=== PATIENT | male | born 1955 | race Caucasian/White ===

== ENCOUNTER 2023-11-11 09:46 | Outpatient (NON) | payer OTHER, SELFPAY ==
[2023-11-11 10:30] LABS: Appearance Urine Clear (Clear); Bilirubin Urine Negative (Negative); Blood Urine 1+ (Negative); Color Urine Light Yellow (Yellow); Glucose Urine UA Negative (Negative); Hemoglobin 13.2 g/dL (12.4-15.3); Ketones Urine Negative (Negative); Leukocyte Esterase Ur Negative LEU/UL (Negative); Mean Corpuscular HGB Conc 33.8 g/dL (32-36); Mean Corpuscular Hemoglobin 31.6 pg (27.0-31.0); Mean Corpuscular Volume 93.3 fL (78.0-102.0); Nitrate Urine Negative (Negative); Platelet Count Result 420 K/mm3 (150-420); Protein Urine Negative (Negative); Red Blood Count 4.18 M/mm3 (4.70-6.10); Red Cell Distribution Width 15.1 % (11.6-14.4); Specific Grav Ur 1.015 (1.010-1.020); Urobilinogen Urine 0.2 mg/dL (0.2-1.0); White Blood Count 11.2 K/mm3 (4.8-10.8); pH Urine 6.5 (5.0-8.0)
[2023-11-11 10:42] LABS: Alanine Aminotransferase 37 U/L (16-63); Albumin Level 3.3 g/dL (3.4-5.0); Alkaline Phosphatase 110 U/L (46-116); Anion Gap 8 mmol/L (4-12); Aspartate Amino Transferase 21 U/L (15-37); Bilirubin,Total 0.7 mg/dL (0.00-1.00); Blood Urea Nitrogen 21 mg/dL (7-18); Calcium 9.8 mg/dL (8.5-10.1); Carbon Dioxide 26 mmol/L (21-32); Chloride 99 mmol/L (98-108); Estimated Glomerular Filt Rate > 60; Glucose 140 mg/dL (70-99); Magnesium 1.4 mg/dL (1.8-2.4); Osmolality Calculated 281 mOsm/kg (285-295); Potassium 4.7 mmol/L (3.5-5.1); Sodium 133 mmol/L (136-145); Total Protein 6.9 g/dL (6.4-8.2)
[2023-11-11 10:43] LABS: Add Urine Microscopic? YES; Bacteria Urine None seen /hpf; RBC Urine 0-2 /hpf (0-2); WBC Urine None seen /hpf (0-3)
[2023-11-11 10:45] LABS: Total Protein Urine Random 25.7 mg/dL (0.0-11.9)
[2023-11-11 11:50] LABS: Total Cells Counted 100
[2023-11-11 11:51] LABS: Band Neutrophils Percent 1 % (0-6); Eosinophils Absolute Manual 0.33 K/mm3 (0.02-0.50); Eosinophils Percent Manual 3 % (1-6); Lymphocytes Percent Manual 9 % (18-44); Monocytes Absolute Manual 1.34 K/mm3 (0.1-0.90); Monocytes Percent Manual 12 % (3-9); Neutrophils Absolute Manual 8.51 K/mm3 (1.3-6.7); Neutrophils Percent Manual 75 % (46-73)
[2023-11-11 11:52] LABS: Platelet Estimate Increased (Adequate); Schistocytes None Seen
[2023-11-13 15:24] LABS: Tacrolimus Prograf 11.5 mcg/L
== END 2023-11-11 09:47 | disposition home or self-care (01) ==
LOC: CHSLAB 09:54
DX: Z94.0 Kidney transplant status (principal)
CPT/HCPCS: 36415; 80053; 80197; 81001; 81050; 83735; 84100; 84156; 85025

== ENCOUNTER 2023-11-14 10:48 | Outpatient (NON) | payer OTHER, SELFPAY ==
[2023-11-14 11:26] LABS: Appearance Urine Clear (Clear); Basophils Absolute Auto 0.12 K/mm3 (0.00-0.10); Bilirubin Urine Negative (Negative); Blood Urine 1+ (Negative); Color Urine Light Yellow (Yellow); Eosinophils Absolute Auto 0.93 K/mm3 (0.02-0.50); Eosinophils Percent Auto 7.5 % (1.0-6.0); Glucose Urine UA Negative (Negative); Hematocrit 36.8 % (37.0-46.0); Hemoglobin 12.4 g/dL (12.4-15.3); Immature Granulocyte Absolute 0.12 K/mm3 (0.00-0.00); Ketones Urine Negative (Negative); Leukocyte Esterase Ur Negative LEU/UL (Negative); Lymphocytes Absolute Auto 1.05 K/mm3 (1.10-4.50); Lymphocytes Percent Auto 8.4 % (18.0-42.0); Mean Corpuscular HGB Conc 33.7 g/dL (32-36); Mean Corpuscular Hemoglobin 32.4 pg (27.0-31.0); Mean Corpuscular Volume 96.1 fL (78.0-102.0); Mean Platelet Volume 8.8 fl (8.7-11.0); Monocytes Absolute Auto 0.58 K/mm3 (0.10-0.90); Monocytes Percent Auto 4.7 % (2.0-11.0); Neutrophils Absolute Auto 9.66 K/mm3 (1.70-7.20); Neutrophils Percent Auto 77.4 % (50.0-70.0); Nitrate Urine Negative (Negative); Platelet Count Result 427 K/mm3 (150-420); Protein Urine Negative (Negative); Red Blood Count 3.83 M/mm3 (4.70-6.10); Red Cell Distribution Width 15.3 % (11.6-14.4); Urobilinogen Urine 0.2 mg/dL (0.2-1.0); White Blood Count 12.5 K/mm3 (4.8-10.8)
[2023-11-14 11:29] LABS: Total Protein Urine Random 19.5 mg/dL (0.0-11.9)
[2023-11-14 11:35] LABS: Add Urine Microscopic? YES; Bacteria Urine Rare /hpf; WBC Urine None seen /hpf (0-3)
[2023-11-14 11:44] LABS: Alanine Aminotransferase 26 U/L (16-63); Albumin Level 3.3 g/dL (3.4-5.0); Alkaline Phosphatase 118 U/L (46-116); Anion Gap 3 mmol/L (4-12); Aspartate Amino Transferase 15 U/L (15-37); Bilirubin,Total 0.5 mg/dL (0.00-1.00); Blood Urea Nitrogen 22 mg/dL (7-18); Carbon Dioxide 25 mmol/L (21-32); Chloride 96 mmol/L (98-108); Estimated Glomerular Filt Rate > 60; Glucose 107 mg/dL (70-99); Magnesium 1.3 mg/dL (1.8-2.4); Osmolality Calculated 261 mOsm/kg (285-295); Phosphorus 1.8 mg/dL (2.6-4.7); Sodium 124 mmol/L (136-145); Total Protein 6.6 g/dL (6.4-8.2)
[2023-11-15 08:48] LABS: Creatinine Urine 41.33 mg/dL (40-278); Ur Ttl Prot Creatinine Ratio 0.47 mg/mg (0-0.20)
[2023-11-18 14:54] LABS: Tacrolimus Prograf 11.3 mcg/L
== END 2023-11-14 10:49 | disposition home or self-care (01) ==
DX: R80.9 Proteinuria, unspecified (principal)
CPT/HCPCS: 36415; 80053; 80197; 81001; 81050; 82570; 83735; 84100; 84156; 85025

== ENCOUNTER 2023-11-18 09:45 | Outpatient (NON) | payer OTHER, SELFPAY ==
[2023-11-18 10:35] LABS: Basophils Absolute Auto 0.12 K/mm3 (0.00-0.10); Basophils Percent Auto 1.2 % (0.0-1.0); Eosinophils Absolute Auto 0.53 K/mm3 (0.02-0.50); Eosinophils Percent Auto 5.4 % (1.0-6.0); Hematocrit 35.9 % (37.0-46.0); Immature Granulocyte Absolute 0.06 K/mm3 (0.00-0.00); Immature Granulocyte Percent A 0.6 % (0.0-0.0); Lymphocytes Absolute Auto 1.03 K/mm3 (1.10-4.50); Lymphocytes Percent Auto 10.5 % (18.0-42.0); Mean Corpuscular HGB Conc 33.4 g/dL (32-36); Mean Corpuscular Hemoglobin 32.1 pg (27.0-31.0); Mean Platelet Volume 8.5 fl (8.7-11.0); Monocytes Absolute Auto 0.42 K/mm3 (0.10-0.90); Monocytes Percent Auto 4.3 % (2.0-11.0); Neutrophils Absolute Auto 7.66 K/mm3 (1.70-7.20); Platelet Count Result 371 K/mm3 (150-420); Red Blood Count 3.74 M/mm3 (4.70-6.10); Red Cell Distribution Width 15.2 % (11.6-14.4); White Blood Count 9.8 K/mm3 (4.8-10.8)
[2023-11-18 11:07] LABS: Appearance Urine Clear (Clear); Bilirubin Urine Negative (Negative); Blood Urine Negative (Negative); Color Urine Light Yellow (Yellow); Glucose Urine UA Negative (Negative); Ketones Urine Negative (Negative); Leukocyte Esterase Ur Negative (Negative); Nitrate Urine Negative (Negative); Protein Urine Negative (Negative); Urobilinogen Urine 0.2 mg/dL (0.2-1.0)
[2023-11-18 11:37] LABS: Add Urine Microscopic? NO
[2023-11-18 15:57] LABS: Alanine Aminotransferase 23 U/L (6-50); Albumin Level 4.1 g/dL (3.5-5.1); Alkaline Phosphatase 117 U/L (38-126); Anion Gap 8 mmol/L (4-12); Aspartate Amino Transferase 21 U/L (17-59); Bilirubin,Total 0.6 mg/dL (0.2-1.3); Blood Urea Nitrogen 21 mg/dL (9-20); Calcium 10.2 mg/dL (8.4-10.2); Carbon Dioxide 19 mmol/L (22-30); Chloride 106 mmol/L (98-107); Estimated Glomerular Filt Rate > 60; Glucose 119 mg/dL (65-110); Magnesium 1.5 mg/dL (1.6-2.3); Osmolality Calculated 280 mOsm/kg (285-295); Phosphorus 2.2 mg/dL (2.5-4.5); Potassium 4.5 mmol/L (3.4-5.0); Sodium 133 mmol/L (137-145)
[2023-11-22 13:11] LABS: Ur Ttl Prot Creatinine Ratio 0.45 mg/mg (0-0.20)
== END 2023-11-18 09:46 | disposition home or self-care (01) ==
LOC: CHSLAB 09:54
DX: Z94.0 Kidney transplant status (principal)
CPT/HCPCS: 36415; 80053; 80197; 81003; 82570; 83735; 84100; 84156; 85025; 87086; 87088

== ENCOUNTER 2023-11-21 09:46 | Outpatient (NON) | payer OTHER, SELFPAY ==
[2023-11-21 10:06] LABS: Appearance Urine Clear (Clear); Basophils Absolute Auto 0.12 K/mm3 (0.00-0.10); Basophils Percent Auto 1.6 % (0.0-1.0); Bilirubin Urine Negative (Negative); Blood Urine Trace-intact (Negative); Color Urine Light Yellow (Yellow); Eosinophils Percent Auto 5.2 % (1.0-6.0); Glucose Urine UA Negative (Negative); Hemoglobin 12.1 g/dL (12.4-15.3); Immature Granulocyte Absolute 0.04 K/mm3 (0.00-0.00); Immature Granulocyte Percent A 0.5 % (0.0-0.0); Ketones Urine Negative (Negative); Leukocyte Esterase Ur Negative LEU/UL (Negative); Lymphocytes Absolute Auto 1.14 K/mm3 (1.10-4.50); Lymphocytes Percent Auto 14.7 % (18.0-42.0); Mean Corpuscular HGB Conc 33.6 g/dL (32-36); Mean Corpuscular Volume 95.2 fL (78.0-102.0); Mean Platelet Volume 8.6 fl (8.7-11.0); Monocytes Absolute Auto 0.33 K/mm3 (0.10-0.90); Monocytes Percent Auto 4.3 % (2.0-11.0); Neutrophils Absolute Auto 5.71 K/mm3 (1.70-7.20); Neutrophils Percent Auto 73.7 % (50.0-70.0); Nitrate Urine Negative (Negative); Platelet Count Result 347 K/mm3 (150-420); Protein Urine Negative (Negative); Red Blood Count 3.78 M/mm3 (4.70-6.10); Red Cell Distribution Width 15.2 % (11.6-14.4); Urobilinogen Urine 0.2 mg/dL (0.2-1.0); White Blood Count 7.7 K/mm3 (4.8-10.8); pH Urine 6.5 (5.0-8.0)
[2023-11-21 10:13] LABS: Add Urine Microscopic? YES; Bacteria Urine None seen /hpf; RBC Urine 0-2 /hpf (0-2); WBC Urine None seen /hpf (0-3)
[2023-11-21 10:14] LABS: Creatinine Urine 45.98 mg/dL (40-278); Total Protein Urine Random 19.4 mg/dL (0.0-11.9); Ur Ttl Prot Creatinine Ratio 0.42 mg/mg (0-0.20)
[2023-11-21 10:21] LABS: Alanine Aminotransferase 22 U/L (16-63); Albumin Level 3.2 g/dL (3.4-5.0); Alkaline Phosphatase 144 U/L (46-116); Anion Gap 8 mmol/L (4-12); Aspartate Amino Transferase 13 U/L (15-37); Bilirubin,Total 0.5 mg/dL (0.00-1.00); Blood Urea Nitrogen 25 mg/dL (7-18); Calcium 9.9 mg/dL (8.5-10.1); Carbon Dioxide 26 mmol/L (21-32); Chloride 103 mmol/L (98-108); Estimated Glomerular Filt Rate > 60; Glucose 130 mg/dL (70-99); Magnesium 1.3 mg/dL (1.8-2.4); Osmolality Calculated 290 mOsm/kg (285-295); Phosphorus 1.7 mg/dL (2.6-4.7); Potassium 4.9 mmol/L (3.5-5.1); Sodium 137 mmol/L (136-145); Total Protein 6.8 g/dL (6.4-8.2)
== END 2023-11-21 09:47 | disposition home or self-care (01) ==
DX: Z94.0 Kidney transplant status (principal)
CPT/HCPCS: 36415; 80053; 80197; 81001; 82570; 83735; 84100; 84156; 85025

== ENCOUNTER 2023-11-26 09:37 | Outpatient (NON) | payer OTHER, SELFPAY ==
[2023-11-26 09:52] LABS: Basophils Percent Auto 1.4 % (0.0-1.0); Eosinophils Absolute Auto 0.31 K/mm3 (0.02-0.50); Eosinophils Percent Auto 4.4 % (1.0-6.0); Hematocrit 35.6 % (37.0-46.0); Hemoglobin 12.1 g/dL (12.4-15.3); Immature Granulocyte Absolute 0.03 K/mm3 (0.00-0.00); Immature Granulocyte Percent A 0.4 % (0.0-0.0); Lymphocytes Absolute Auto 1.14 K/mm3 (1.10-4.50); Mean Corpuscular Hemoglobin 32.4 pg (27.0-31.0); Mean Corpuscular Volume 95.2 fL (78.0-102.0); Mean Platelet Volume 8.7 fl (8.7-11.0); Monocytes Absolute Auto 0.33 K/mm3 (0.10-0.90); Monocytes Percent Auto 4.6 % (2.0-11.0); Neutrophils Percent Auto 73.2 % (50.0-70.0); Platelet Count Result 309 K/mm3 (150-420); Red Blood Count 3.74 M/mm3 (4.70-6.10); Red Cell Distribution Width 15.1 % (11.6-14.4); White Blood Count 7.1 K/mm3 (4.8-10.8)
[2023-11-26 09:53] LABS: Appearance Urine Clear (Clear); Bilirubin Urine Negative (Negative); Blood Urine Negative (Negative); Color Urine Light Yellow (Yellow); Glucose Urine UA Negative (Negative); Ketones Urine Negative (Negative); Leukocyte Esterase Ur Negative LEU/UL (Negative); Nitrate Urine Negative (Negative); Protein Urine Negative (Negative); Specific Grav Ur 1.015 (1.010-1.020); Urobilinogen Urine 0.2 mg/dL (0.2-1.0); pH Urine 6.5 (5.0-8.0)
[2023-11-26 09:54] LABS: Add Urine Microscopic? NO
[2023-11-26 09:56] LABS: Creatinine Urine 50.08 mg/dL (40-278); Total Protein Urine Random 17.9 mg/dL (0.0-11.9); Ur Ttl Prot Creatinine Ratio 0.36 mg/mg (0-0.20)
[2023-11-26 10:07] LABS: Alanine Aminotransferase 17 U/L (16-63); Albumin Level 3.3 g/dL (3.4-5.0); Alkaline Phosphatase 157 U/L (46-116); Anion Gap 8 mmol/L (4-12); Aspartate Amino Transferase 12 U/L (15-37); Bilirubin,Total 0.3 mg/dL (0.00-1.00); Blood Urea Nitrogen 19 mg/dL (7-18); Calcium 9.5 mg/dL (8.5-10.1); Carbon Dioxide 26 mmol/L (21-32); Chloride 103 mmol/L (98-108); Estimated Glomerular Filt Rate > 60; Glucose 124 mg/dL (70-99); Magnesium 1.5 mg/dL (1.8-2.4); Osmolality Calculated 287 mOsm/kg (285-295); Phosphorus 1.6 mg/dL (2.6-4.7); Potassium 4.8 mmol/L (3.5-5.1); Sodium 137 mmol/L (136-145); Total Protein 6.7 g/dL (6.4-8.2)
[2023-11-28 00:03] LABS: Tacrolimus Prograf 11.6 mcg/L
== END 2023-11-26 09:38 | disposition home or self-care (01) ==
DX: Z94.0 Kidney transplant status (principal)
CPT/HCPCS: 36415; 80053; 80197; 81003; 82570; 83735; 84100; 84156; 85025

== ENCOUNTER 2023-11-28 09:43 | Outpatient (NON) | payer OTHER, SELFPAY ==
[2023-11-28 10:05] LABS: Appearance Urine Clear (Clear); Bilirubin Urine Negative (Negative); Color Urine Light Yellow (Yellow); Glucose Urine UA Trace (Negative); Ketones Urine Negative (Negative); Leukocyte Esterase Ur Negative LEU/UL (Negative); Nitrate Urine Negative (Negative); Protein Urine Negative (Negative); Urobilinogen Urine 0.2 mg/dL (0.2-1.0); pH Urine 6.5 (5.0-8.0)
[2023-11-28 10:07] LABS: Basophils Absolute Auto 0.14 K/mm3 (0.00-0.10); Basophils Percent Auto 2.1 % (0.0-1.0); Eosinophils Absolute Auto 0.35 K/mm3 (0.02-0.50); Eosinophils Percent Auto 5.2 % (1.0-6.0); Immature Granulocyte Absolute 0.03 K/mm3 (0.00-0.00); Immature Granulocyte Percent A 0.4 % (0.0-0.0); Lymphocytes Absolute Auto 1.24 K/mm3 (1.10-4.50); Lymphocytes Percent Auto 18.6 % (18.0-42.0); Mean Corpuscular HGB Conc 34.2 g/dL (32-36); Mean Corpuscular Hemoglobin 32.4 pg (27.0-31.0); Mean Corpuscular Volume 94.8 fL (78.0-102.0); Mean Platelet Volume 8.5 fl (8.7-11.0); Monocytes Absolute Auto 0.27 K/mm3 (0.10-0.90); Neutrophils Absolute Auto 4.64 K/mm3 (1.70-7.20); Neutrophils Percent Auto 69.7 % (50.0-70.0); Platelet Count Result 336 K/mm3 (150-420); Red Blood Count 4.01 M/mm3 (4.70-6.10); Red Cell Distribution Width 14.9 % (11.6-14.4); White Blood Count 6.7 K/mm3 (4.8-10.8)
[2023-11-28 10:17] LABS: Add Urine Microscopic? YES; Bacteria Urine Rare /hpf; Blood Urine Trace-Lysed (Negative); RBC Urine 0-2 /hpf (0-2); Squamous Epithelial Cell Urine Occasional /hpf (Few); WBC Urine None seen /hpf (0-3)
[2023-11-28 10:21] LABS: Total Protein Urine Random 17.1 mg/dL (0.0-11.9); Ur Ttl Prot Creatinine Ratio 0.42 mg/mg (0-0.20)
[2023-11-28 10:24] LABS: Alanine Aminotransferase 26 U/L (16-63); Albumin Level 3.5 g/dL (3.4-5.0); Alkaline Phosphatase 164 U/L (46-116); Anion Gap 10 mmol/L (4-12); Aspartate Amino Transferase 17 U/L (15-37); Bilirubin,Total 0.5 mg/dL (0.00-1.00); Blood Urea Nitrogen 22 mg/dL (7-18); Calcium 9.7 mg/dL (8.5-10.1); Carbon Dioxide 25 mmol/L (21-32); Chloride 102 mmol/L (98-108); Estimated Glomerular Filt Rate 57; Glucose 155 mg/dL (70-99); Magnesium 1.4 mg/dL (1.8-2.4); Osmolality Calculated 290 mOsm/kg (285-295); Phosphorus 1.8 mg/dL (2.6-4.7); Potassium 4.5 mmol/L (3.5-5.1); Sodium 137 mmol/L (136-145); Total Protein 7.1 g/dL (6.4-8.2)
== END 2023-11-28 09:44 | disposition home or self-care (01) ==
DX: Z94.0 Kidney transplant status (principal)
CPT/HCPCS: 36415; 80053; 80197; 81001; 82570; 83735; 84100; 84156; 85025

== ENCOUNTER 2023-12-05 09:53 | Outpatient (NON) | payer OTHER, SELFPAY ==
[2023-12-05 10:10] LABS: Appearance Urine Clear (Clear); Bilirubin Urine Negative (Negative); Blood Urine Negative (Negative); Color Urine Light Yellow (Yellow); Glucose Urine UA Negative (Negative); Ketones Urine Negative (Negative); Leukocyte Esterase Ur Negative (Negative); Nitrate Urine Negative (Negative); Protein Urine Negative (Negative); Specific Grav Ur 1.015 (1.010-1.020); Urobilinogen Urine 0.2 mg/dL (0.2-1.0)
[2023-12-05 10:11] LABS: Basophils Absolute Auto 0.12 K/mm3 (0.00-0.10); Basophils Percent Auto 1.6 % (0.0-1.0); Eosinophils Absolute Auto 0.19 K/mm3 (0.02-0.50); Eosinophils Percent Auto 2.6 % (1.0-6.0); Hematocrit 37.6 % (37.0-46.0); Hemoglobin 12.8 g/dL (12.4-15.3); Immature Granulocyte Absolute 0.08 K/mm3 (0.00-0.00); Immature Granulocyte Percent A 1.1 % (0.0-0.0); Lymphocytes Percent Auto 21.9 % (18.0-42.0); Mean Corpuscular Hemoglobin 32.7 pg (27.0-31.0); Mean Corpuscular Volume 96.2 fL (78.0-102.0); Mean Platelet Volume 8.3 fl (8.7-11.0); Monocytes Absolute Auto 0.24 K/mm3 (0.10-0.90); Monocytes Percent Auto 3.3 % (2.0-11.0); Neutrophils Absolute Auto 5.09 K/mm3 (1.70-7.20); Neutrophils Percent Auto 69.5 % (50.0-70.0); Platelet Count Result 337 K/mm3 (150-420); Red Blood Count 3.91 M/mm3 (4.70-6.10); Red Cell Distribution Width 15.1 % (11.6-14.4); White Blood Count 7.3 K/mm3 (4.8-10.8)
[2023-12-05 10:15] LABS: Creatinine Urine 27.85 mg/dL (40-278); Total Protein Urine Random 14.8 mg/dL (0.0-11.9); Ur Ttl Prot Creatinine Ratio 0.53 mg/mg (0-0.20)
[2023-12-05 10:16] LABS: Add Urine Microscopic? NO
[2023-12-05 10:19] LABS: Alanine Aminotransferase 22 U/L (16-63); Albumin Level 3.5 g/dL (3.4-5.0); Alkaline Phosphatase 145 U/L (46-116); Anion Gap 10 mmol/L (4-12); Aspartate Amino Transferase 16 U/L (15-37); Bilirubin,Total 0.4 mg/dL (0.00-1.00); Blood Urea Nitrogen 19 mg/dL (7-18); Calcium 9.8 mg/dL (8.5-10.1); Carbon Dioxide 25 mmol/L (21-32); Chloride 102 mmol/L (98-108); Estimated Glomerular Filt Rate > 60; Glucose 117 mg/dL (70-99); Magnesium 1.4 mg/dL (1.8-2.4); Osmolality Calculated 287 mOsm/kg (285-295); Potassium 4.5 mmol/L (3.5-5.1); Sodium 137 mmol/L (136-145); Total Protein 6.9 g/dL (6.4-8.2)
[2023-12-05 15:06] LABS: Phosphorus 1.5 mg/dL (2.6-4.7)
[2023-12-06 14:54] LABS: Tacrolimus Prograf 10.1 mcg/L
== END 2023-12-05 09:54 | disposition home or self-care (01) ==
LOC: CHSLAB 09:58
DX: Z94.0 Kidney transplant status (principal)
CPT/HCPCS: 36415; 80053; 80197; 81003; 82570; 83735; 84100; 84156; 85025